=== PATIENT | female | born 1945 | race Hispanic/Latino ===

== ENCOUNTER → 2017-07-08 | Outpatient (CLI) | payer MEDICARE, OTHER | LOC: RAH 11:19 | PROVIDERS: ATTEND Internal Medicine | DX: K21.9 Gastro-esophageal reflux disease without esophagitis (principal); K44.9 Diaphragmatic hernia without obstruction or gangrene | CPT/HCPCS: 71250 ==

== ENCOUNTER → 2018-02-16 | Outpatient (CLI) | payer OTHER | END | disposition home or self-care (01) | LOC: OIH 11:43 | PROVIDERS: ATTEND Internal Medicine | DX: Z01.818 Encounter for other preprocedural examination (principal); I10 Essential (primary) hypertension | CPT/HCPCS: 71046 ==

== ENCOUNTER → 2020-09-19 | Outpatient (CLI) | payer MEDICARE | END | disposition home or self-care (01) | LOC: RAH 14:28 | PROVIDERS: ATTEND Otolaryngology Plastic Surgery within the Head & Neck | DX: J34.2 Deviated nasal septum (principal); J34.89 Other specified disorders of nose and nasal sinuses; J32.8 Other chronic sinusitis | CPT/HCPCS: 70486 ==

== ENCOUNTER 2023-10-05 07:24 | Day surgery (SDC) | payer OTHER ==
[~2023-10-05] VITALS: Ht 154.9 cm; Wt 111.6 kg
[2023-10-05] VITALS (11 sets, daily range): BP systolic 99–174; BP diastolic 54–72; PULSE 64–76; RESP 14–18
[2023-10-05] MEDS ORDERED: LOSA25TA41 PO (09:25)
[2023-10-05] MEDS ORDERED: ESCI5TAB16 PO (09:25)
[2023-10-05] MEDS ORDERED: AEC81 PO (09:25)
[2023-10-05] MEDS ORDERED: OMEP10CA5 PO (09:25)
[2023-10-05] MEDS ORDERED: METF-444 PO (09:25)
[2023-10-05] MEDS ORDERED: LEVO13CA4 PO (09:25)
[2023-10-05] MEDS: 0.9%NACL 1000ML 1,000 ML IV ONE (09:31)
[2023-10-05] MEDS ORDERED: PROPOFOL 10 MG/ML 20ML VIAL IV ONE (11:28)
== END 2023-10-05 13:03 | disposition home or self-care (01) ==
LOC: ENDO 07:24 → DAH 07:24 → ENDO 13:03
PROVIDERS: ATTEND Internal Medicine Gastroenterology
DX: R13.10 Dysphagia, unspecified (principal); R10.10 Upper abdominal pain, unspecified; K21.00 Gastro-esophageal reflux disease with esophagitis, without bleeding; E66.01 Morbid (severe) obesity due to excess calories; K45.8 Other specified abdominal hernia without obstruction or gangrene; K31.84 Gastroparesis; K80.20 Calculus of gallbladder without cholecystitis without obstruction; J45.909 Unspecified asthma, uncomplicated; I10 Essential (primary) hypertension; E11.9 Type 2 diabetes mellitus without complications; F41.9 Anxiety disorder, unspecified; F32.A Depression, unspecified; M19.90 Unspecified osteoarthritis, unspecified site; E03.9 Hypothyroidism, unspecified; E78.5 Hyperlipidemia, unspecified; Z79.899 Other long term (current) drug therapy; Z86.010 Personal history of colon polyps; Z90.710 Acquired absence of both cervix and uterus; Z98.890 Other specified postprocedural states; Z79.82 Long term (current) use of aspirin; Z79.84 Long term (current) use of oral hypoglycemic drugs; Z68.42 Body mass index [BMI] 45.0-49.9, adult; Z79.890 Hormone replacement therapy
CPT/HCPCS: 43239; 82948 ×2; J7030; J2704; A4620; A4215 ×2; A4223; A4222; A4221; A4663; A4606; J3490